=== PATIENT | male | born 2000 | race Two or more races ===

== ENCOUNTER 2025-06-02 17:12 | Emergency (ER) | payer OTHER ==
[~2025-06-02] VITALS: Ht 172.7 cm; Wt 79.4 kg
[2025-06-02] MEDS ORDERED: ACETAMINOPHEN 500 MG GEL..CAP PO ONE ×2 (18:45→19:12)
[2025-06-02] MEDS ORDERED: PHENAZOPYRIDINE HCL 100 MG TABLET PO ONE ×2 (18:45→19:13)
[2025-06-02] MEDS ORDERED: CEFTRIAXONE SODIUM 2,000 MG VIAL IM ONE (18:45)
[2025-06-02] MEDS ORDERED: CEFTRIAXONE SODIUM 2,000 MG VIAL ONE (19:13)
[2025-06-02 19:46] LABS: BASO % 0.7 % (0.1-1.2); EOS # 0.28 (0.04-0.54); EOS % 2.3 % (0.7-7.0); LYMPH # 2.07 (1.18-3.74); LYMPH % 17.1 % (19.3-53.1); MEAN PLATELET VOLUME 8.80 fl (9.4-12.4); MONO # 0.87 (0.24-0.82); MONO % 7.2 % (4.7-12.5); NEUT # 8.78 (1.56-6.13); NEUT % 72.3 % (34.0-71.1); RED CELL DISTRIBUTION WIDTH 11.8 % (11.6-14.4)
[2025-06-02 20:35] LABS: URINE APPEARANCE Cloudy; URINE BILIRRUBIN Negative (NEGATIVE); URINE BLOOD Large; URINE COLOR Yellow; URINE GLUCOSE Negative (NEGATIVE); URINE KETONE 15 (NEGATIVE); URINE LEUKOCYTE Large; URINE NITRATE Negative; URINE PROTEIN 30 (NEGATIVE); URINE UROBILINOGEN 0.2 E.U./dl
[2025-06-02 20:39] LABS: URINE EPITHELIAL CELLS 4.1 uL (0.0-38.8); URINE RBC 943.4 uL (0.0-20.8); URINE WBC 1431.5 uL (0.0-23.2)
[2025-06-02 20:45] LABS: URINE CAST 0.14 uL (0.0-1.40)
[2025-06-02] MEDS ORDERED: MACROBID 100 M100 MG PO (20:54)
== END 2025-06-02 20:57 | disposition home or self-care (01) ==
LOC: ER 17:13
DX: N39.0 Urinary tract infection, site not specified (principal); R31.9 Hematuria, unspecified; R30.0 Dysuria